=== PATIENT | male | born 1980 | race Caucasian/White ===

== ENCOUNTER 2017-05-25 15:45 | Emergency (ER) | payer MEDICAID ==
[~2017-05-25] VITALS: Ht 165.1 cm; Wt 87.0 kg
[2017-05-25 15:54] VITALS: BP 147/94
[2017-05-25] MEDS ORDERED: CEFAZOLIN 1,000 MG ONE (16:08)
[2017-05-25] MEDS ORDERED: CEFAZOLIN 1,000 MG IM ONE (16:30)
== END 2017-05-25 16:57 | disposition home or self-care (01) ==
LOC: ED 16:40
DX: L03.115 Cellulitis of right lower limb (principal); F12.10 Cannabis abuse, uncomplicated
CPT/HCPCS: 96372; 99283; J0690

== ENCOUNTER 2017-05-28 19:52 | Emergency (ER) | payer MEDICAID ==
[~2017-05-28] VITALS: Ht 165.1 cm; Wt 84.0 kg
[2017-05-28 20:00] VITALS: BP 133/89
[2017-05-28] MEDS ORDERED: BACITRACIN ZINC OINT 500U/GM, 0.9 GM ONE (20:51)
== END 2017-05-28 21:16 | disposition home or self-care (01) ==
LOC: ED 20:48
DX: L02.415 Cutaneous abscess of right lower limb (principal); F12.10 Cannabis abuse, uncomplicated
CPT/HCPCS: 99282

== ENCOUNTER 2019-06-20 15:19 | Emergency (ER) | payer MEDICAID ==
[~2019-06-20] VITALS: Ht 167.6 cm; Wt 92.5 kg
[2019-06-20 19:09] VITALS: BP 148/98
== END 2019-06-20 19:12 | disposition home or self-care (01) ==
LOC: ED 18:45
DX: S30.1XXA Contusion of abdominal wall, initial encounter (principal); F17.200 Nicotine dependence, unspecified, uncomplicated; X58.XXXA Exposure to other specified factors, initial encounter; Y93.89 Activity, other specified; Y92.89 Other specified places as the place of occurrence of the external cause; Y99.8 Other external cause status
CPT/HCPCS: 36415; 74177; 80047; 80053; 81001; 83690; 85025; 87086; 99284; Q9967

== ENCOUNTER 2021-04-25 18:29 | Emergency (ER) | payer MEDICAID ==
[~2021-04-25] VITALS: Ht 167.6 cm; Wt 99.6 kg
[2021-04-25 19:07] VITALS: BP 154/103
[2021-04-25] MEDS ORDERED: LIDOCAINE-MPF 1%, 5ML INFIL ONE (19:30)
[2021-04-25] MEDS ORDERED: DIPH,PERTUSS(ACELL),TET VAC/PF 0.5 ML IM-VACC ONE (19:30)
--- NOTE | 2021-04-25 19:57 | NUR ---
PT CALLED FOR XRAY FOR 2ND TIME, NOT IN LOBBY.
--- NOTE | 2021-04-25 20:46 | NUR ---
PT NOT IN LOBBY WHEN CALLED FOR ROOM.PT LWBS.
== END 2021-04-25 20:51 ==
LOC: ED 20:00
DX: M25.522 Pain in left elbow (principal); Y08.89XA Assault by other specified means, initial encounter; Y93.89 Activity, other specified; Y92.89 Other specified places as the place of occurrence of the external cause; Y99.8 Other external cause status
CPT/HCPCS: 99281; 99283